=== PATIENT | female | born 1940 ===

== ENCOUNTER 2017-05-20 12:53 | Inpatient (IN) | payer OTHER ==
[~2017-05-20] VITALS: Ht 152.4 cm; Wt 45.4 kg
[2017-05-20] MEDS ORDERED: AVAPRO300 MG (13:19)
[2017-05-20] MEDS ORDERED: VITAMIN C125 MG (13:19)
[2017-05-26] MEDS ORDERED: AVAPRO300 MG PO (13:41)
[2017-05-26] MEDS ORDERED: CIPRO500 MG PO (13:41)
== END 2017-05-26 14:06 | disposition home or self-care (01) | DRG 371 ==
LOC: ER 12:53 → MEDJ 19:49 → MEDI 05-21 20:12
PROC: BT43ZZZ Ultrasonography of Bilateral Kidneys (ICD-10-PCS; principal; 2017-05-21)
DX: A02.0 Salmonella enteritis (principal); A02.1 Salmonella sepsis; N17.8 Other acute kidney failure; E87.1 Hypo-osmolality and hyponatremia; E86.0 Dehydration; E87.6 Hypokalemia